=== PATIENT | female | born 1965 | race Hispanic/Latino ===

== ENCOUNTER 2018-08-07 16:03 | Inpatient (IN) | payer OTHER ==
[2018-08-07] VITALS (7 sets, daily range): BP systolic 109–125; BP diastolic 52–60
[~2018-08-07] VITALS: Ht 157.5 cm; Wt 90.0 kg
[2018-08-07] MEDS ORDERED: TRAZODONE HCL100 MG PO (17:39)
[2018-08-07] MEDS ORDERED: LACTULOSE20 GM/30 M PO (17:39)
[2018-08-07] MEDS ORDERED: FUROSEMIDE40 MG PO (17:39)
[2018-08-07] MEDS ORDERED: PROPRANOLOL HCL10 MG PO (17:39)
[2018-08-07] MEDS ORDERED: SPIRONOLACTONE25 MG PO (17:39)
[2018-08-07] MEDS ORDERED: XIFAXAN550 MG PO (17:39)
[2018-08-07 20:23] LABS: BASOPHILS % 0.3 % (0.0-1.0); EOSINOPHILS # (AUTO) 0.1 (0.0-0.4); EOSINOPHILS % 1.9 % (0.0-6.0); HEMATOCRIT 28.6 % (34.2-44.1); HEMOGLOBIN 9.4 g/dL (12.0-16.0); LYMPHOCYTES # (AUTO) 0.6 (1.0-3.2); LYMPHOCYTES % 17.1 % (18.0-39.1); MEAN CORPUSCULAR HGB CONC 32.9 g/dL (31-35); MEAN CORPUSCULAR VOLUME 109.6 fL (81-99); MONOCYTES # (AUTO) 0.4 (0.2-0.8); NEUTROPHILS # (AUTO) 2.6 (2.1-6.9); NEUTROPHILS % 70.2 % (38.7-80.0); RED BLOOD COUNT 2.61 x10e6/uL (3.6-5.1); RED CELL DISTRIBUTION WIDTH 17.2 % (11.7-14.4)
[2018-08-07 20:33] LABS: INR 1.73; PROTHROMBIN TIME 20.9 seconds (11.9-14.5)
[2018-08-07 20:42] LABS: ALANINE AMINOTRANSFERASE 31 IU/L (0-55); ALBUMIN 2.3 g/dL (3.5-5.0); ALBUMIN/GLOBULIN RATIO 0.5 (0.8-2.0); ALKALINE PHOSPHATASE 166 IU/L (40-150); ANION GAP 9.2 mmol/L (8-16); BLOOD UREA NITROGEN 9 mg/dL (7-26); BUN/CREATININE RATIO 17 (6-25); CALCIUM 8.2 mg/dL (8.4-10.2); CARBON DIOXIDE 22 mmol/L (22-29); CHLORIDE 107 mmol/L (98-107); CREATININE, SERUM 0.52 mg/dL (0.57-1.11); EST GLOMERULAR FILTRATION RATE > 60 ML/MIN (60-); GLUCOSE 107 mg/dL (74-118); POTASSIUM 4.2 mmol/L (3.5-5.1); SODIUM 134 mmol/L (136-145)
[2018-08-07 20:44] LABS: PLATELET COUNT 8 x10e3/uL (140-360)
[2018-08-07] MEDS ORDERED: SODIUM CHLORIDE 0.9% 250ML 250 ML ONE (22:20)
--- NOTE | 2018-08-07 22:47 | NUR ---
Begin platelet transfusion @ 3368 with two RN verifying. Infusion rate stated at 100 mL/hr for first 15 minutes. Continue to monitor patient for allergic reaction.
--- NOTE | 2018-08-07 23:45 | NUR ---
Platelet tranfusion is almost completed with the start of NS. The patient stated she is feeling nausea and headache. RN called and spoke with Dr. English receiving order for Tylenol 650 mg PO and Zofran IV. Continue to monitor the patient for allergic reaction. Also received order for CBC and CMP for routine on 08/08/2018.
[2018-08-07] MEDS: ACETAMINOPHEN 325 MG TAB PO PRN (23:55)
[2018-08-07] MEDS: ONDANSETRON HCL INJ 2MG/ML 2ML 2 MG/ML VIAL IV PRN (23:55)
[2018-08-08] VITALS (9 sets, daily range): BP systolic 100–127; BP diastolic 55–60
[2018-08-08 06:42] LABS: BASOPHILS % 0.4 % (0.0-1.0); EOSINOPHILS # (AUTO) 0.1 (0.0-0.4); EOSINOPHILS % 2.4 % (0.0-6.0); HEMATOCRIT 26.3 % (34.2-44.1); HEMOGLOBIN 8.6 g/dL (12.0-16.0); LYMPHOCYTES # (AUTO) 0.6 (1.0-3.2); LYMPHOCYTES % 25.2 % (18.0-39.1); MEAN CORPUSCULAR HEMOGLOBIN 35.8 pg (28-32); MEAN CORPUSCULAR HGB CONC 32.7 g/dL (31-35); MEAN CORPUSCULAR VOLUME 109.6 fL (81-99); MONOCYTES # (AUTO) 0.3 (0.2-0.8); MONOCYTES % 11.4 % (4.4-11.3); NEUTROPHILS # (AUTO) 1.5 (2.1-6.9); NEUTROPHILS % 60.2 % (38.7-80.0); RED CELL DISTRIBUTION WIDTH 17.2 % (11.7-14.4)
[2018-08-08 06:50] LABS: PLATELET COUNT 7 x10e3/uL (140-360)
[2018-08-08 07:10] LABS: ALANINE AMINOTRANSFERASE 24 IU/L (0-55); ALBUMIN 2.2 g/dL (3.5-5.0); ALBUMIN/GLOBULIN RATIO 0.6 (0.8-2.0); ALKALINE PHOSPHATASE 138 IU/L (40-150); ANION GAP 7.8 mmol/L (8-16); BLOOD UREA NITROGEN 9 mg/dL (7-26); BUN/CREATININE RATIO 19 (6-25); CALCIUM 8.1 mg/dL (8.4-10.2); CARBON DIOXIDE 24 mmol/L (22-29); CHLORIDE 109 mmol/L (98-107); CREATININE, SERUM 0.48 mg/dL (0.57-1.11); EST GLOMERULAR FILTRATION RATE > 60 ML/MIN (60-); GLUCOSE 81 mg/dL (74-118); POTASSIUM 3.8 mmol/L (3.5-5.1); SODIUM 137 mmol/L (136-145)
[2018-08-08] MEDS ORDERED: DEXAMETHASONE 4 MG TAB PO NR (07:30)
--- NOTE | 2018-08-08 07:30 | NUR ---
Received patient awake in bed no signs of distress. Call light in reach, will continue to monitor.
--- NOTE | 2018-08-08 10:15 | NUR ---
Patient A/O X3, even respirations on RA. Bowel sounds active, skin intact, 1+ pitting edema in BLE. Patient ambulatory, voids in toilet. Right AC 18 gauge IV SL. No signs of distress or discomfort at this time. Call light in reach, will continue to monitor.
[2018-08-08] MEDS ORDERED: DEXAMETHASONE SOD PHOS 10 MG/1 ML VIAL IV NR (11:30)
[2018-08-08] MEDS: PROPRANOLOL HCL 10 MG TAB PO SCH (11:40)
[2018-08-08] MEDS: RIFAXIMIN 550 MG TABLET PO SCH ×2 (11:40→21:31)
[2018-08-08] MEDS: SPIRONOLACTONE 25 MG TAB PO SCH (11:40)
[2018-08-08] MEDS: LACTULOSE SYRUP 20 GM/30 ML UDC PO SCH ×2 (11:40→17:04)
[2018-08-08] MEDS ORDERED: SODIUM CHLORIDE 0.9% 250ML 250 ML ONE (11:55)
--- NOTE | 2018-08-08 12:16 | NUR ---
Platelet transfusion started at 1200. Patient tolerating well, vital signs stable. Call light in reach will continue to monitor.
--- NOTE | 2018-08-08 12:30 | NUR ---
Platelet transfusion complete. Vital signs stable, no transfusion reactions observed or stated by patient. Call light in reach will continue to monitor.
--- NOTE | 2018-08-08 14:30 | History and Physical ---
HISTORY OF PRESENT ILLNESS: This is a 53-year-old female patient of mine, was visiting her hemato-oncologist, Dr. English for her epistaxis and her platelet count was very low only 8000 and the patient was also having ABD pain and the patient was also complaining of pain during the swallowing. So, the patient was sent for direct admission from clinic for platelet transfusion and monitoring. The patient had received platelets last night and today, platelets have dropped to 7000. ALLERGIES: THE PATIENT IS ALLERGIC TO IODINE. PAST MEDICAL HISTORY: Advanced liver cirrhosis, severe thrombocytopenia, and hepatosplenomegaly. The patient is on a liver transplant list. SOCIAL HISTORY: Denies smoking. Denies using alcohol. FAMILY HISTORY: Hypertension and diabetes mellitus. REVIEW OF SYSTEMS: Abdominal pain, nose bleed, difficulty with swallowing, and pain on swallowing. PHYSICAL EXAMINATION: GENERAL: She is a middle-aged female patient, lying in the bed, not in any acute distress. HEENT: Marked PALLOR present. LUNGS: Bilateral equal air entry. No rales or rhonchi. HEART: S1 and S2. Regular. Systolic murmur present. ABDOMEN: Ascites present. Hepatosplenomegaly present. NEUROLOGIC: No focal neurological deficits. ADMITTING INPATIENT DIAGNOSES: Epistaxis with severe thrombocytopenia, platelets of only 8000 and anemia, hemoglobin of 8.6. High pro-time , Epistaxis with severe hepatic coagulopathy and advanced liver failure, cirrhosis of the liver. The patient has been admitted with above diagnoses. The patient received platelet transfusion . MD EDMUND Mccoy/SUE /[id number] MTDD
[2018-08-08] MEDS ORDERED: NON-FORMULARY MEDICATION (Trazodone Hcl 100 MG) PO SCH (21:00)
[2018-08-08] MEDS: TRAZODONE HCL 50 MG TAB PO SCH (21:31)
[2018-08-08] MEDS: ACETAMINOPHEN 325 MG TAB PO PRN (22:28)
[2018-08-09] VITALS (8 sets, daily range): BP systolic 106–133; BP diastolic 53–61
--- NOTE | 2018-08-09 01:18 | Consultation ---
DATE OF CONSULTATION: Gastroenterology Consultation REASON FOR CONSULTATION: Cirrhosis. HISTORY OF PRESENT ILLNESS: Ms. Guerrero is a pleasant 53-year-old woman with below history. She had a cardiac catheterization a week ago. She had a hematoma related to that. Afterwards, she noted bruising and she started developing significant nosebleed. She has abdominal pain, which is chronic. She has a history of gastroparesis and has had EGD with Botox by Dr. Lee in the past. She has hepatoma and is on the transplant list at [facility] with [facility]. PAST MEDICAL HISTORY: 1. Cirrhosis. 2. Thrombocytopenia. 3. Hepatosplenomegaly. 4. Gastroparesis. MEDICATIONS: Reviewed. Please see MAR medication reconciliation form. ALLERGIES: REVIEWED. SOCIAL HISTORY: No alcohol, tobacco, or illicit substances. FAMILY HISTORY: Hypertension, diabetes. REVIEW OF SYSTEMS: A 12-system review is positive for that mentioned in HPI, otherwise positive for some exacerbation of her encephalopathy. PHYSICAL EXAMINATION: GENERAL: Pleasant, alert and oriented, in no acute distress. HEENT: Pupils are equal, round, and reactive to light. NECK: Supple. LUNGS: Clear. CARDIOVASCULAR: S1 and S2. ABDOMEN: Soft. Tender upper abdomen. No rebound, guarding, or mass. EXTREMITIES: No clubbing, cyanosis. PSYCHIATRIC: Calm, cooperative. NEUROLOGIC: Nonfocal. HEM/ONC: Some bruising. Electronic health records were reviewed for laboratory and radiologic studies as well as history. ASSESSMENT: 1. Cirrhosis. 2. Hepatoma. 3. Thrombocytopenia, severe. 4. Epistaxis. 5. Easy bleeding, bruising. 6. Recent cardiac catheterization. Complaining of hematoma with that. 7. Swallow discomfort, dysphagia. PLAN: At the current time, defer to Dr. English her hematologic issues. We will continue to her on lactulose and Xifaxan. The patient is having some discomfort on swallowing and feels like she gets phlegm and coughing when she eats. We will see how she does over the weekend. We can consider an upper endoscopy if she is not improved pending platelet count that is acceptable before performing another endoscopy. Thank you very much for asking me to see Ms. Guerrero. If any questions or concerns, please do not hesitate to contact me. Patricia Mcneal MD RLS/SUE /[id number] MTDJennifer
[2018-08-09] MEDS: HYDROCODONE/APAP 5MG-325MG TAB PO PRN ×2 (06:05→17:34)
[2018-08-09] MEDS: LACTULOSE SYRUP 20 GM/30 ML UDC PO SCH ×3 (06:05→17:27)
[2018-08-09 07:08] LABS: HEMATOCRIT 28.6 % (34.2-44.1); HEMOGLOBIN 9.3 g/dL (12.0-16.0); LYMPHOCYTES # (AUTO) 0.3 (1.0-3.2); LYMPHOCYTES % 5.6 % (18.0-39.1); MEAN CORPUSCULAR HEMOGLOBIN 35.9 pg (28-32); MEAN CORPUSCULAR HGB CONC 32.5 g/dL (31-35); MEAN CORPUSCULAR VOLUME 110.4 fL (81-99); MONOCYTES # (AUTO) 0.2 (0.2-0.8); MONOCYTES % 3.9 % (4.4-11.3); NEUTROPHILS # (AUTO) 4.8 (2.1-6.9); NEUTROPHILS % 90.1 % (38.7-80.0); RED BLOOD COUNT 2.59 x10e6/uL (3.6-5.1); RED CELL DISTRIBUTION WIDTH 16.8 % (11.7-14.4)
[2018-08-09 07:10] LABS: PLATELET COUNT 5 x10e3/uL (140-360)
[2018-08-09 07:11] LABS: ALANINE AMINOTRANSFERASE 31 IU/L (0-55); ALBUMIN 2.4 g/dL (3.5-5.0); ALBUMIN/GLOBULIN RATIO 0.5 (0.8-2.0); ALKALINE PHOSPHATASE 167 IU/L (40-150); ANION GAP 9.1 mmol/L (8-16); BLOOD UREA NITROGEN 9 mg/dL (7-26); BUN/CREATININE RATIO 16 (6-25); CALCIUM 8.5 mg/dL (8.4-10.2); CARBON DIOXIDE 22 mmol/L (22-29); CHLORIDE 109 mmol/L (98-107); CREATININE, SERUM 0.56 mg/dL (0.57-1.11); EST GLOMERULAR FILTRATION RATE > 60 ML/MIN (60-); GLUCOSE 147 mg/dL (74-118); POTASSIUM 4.1 mmol/L (3.5-5.1); SODIUM 136 mmol/L (136-145)
--- NOTE | 2018-08-09 07:30 | NUR ---
RECEIVED PATIENT ASLEEP IN BED, NO SIGNS OF DISTRESS. CALL LIGHT IN REACH WILL CONTINUE TO MONITOR.
[2018-08-09 07:44] LABS: ANISOCYTOSIS S; BAND NEUTROPHILS % (MANUAL) 5 %; LYMPHOCYTES % (MANUAL) 4 % (19-48); MONOCYTES % (MANUAL) 2 % (3.4-9.0); NEUTROPHILS % (MANUAL) 89 % (40-74); PLATELET ESTIMATE MARKEDLY DECREASED; PLATELET MORPHOLOGY COMMENT NORMAL; POIKILOCYTOSIS S; RBC MORPHOLOGY COMMENT NORMAL
--- NOTE | 2018-08-09 07:55 | NUR ---
NOTIFIED DR. RODRIGUEZ OF PLT COUNT 5. ORDER FOR 1 TRANSFUSION PLATELET PHERESIS.
[2018-08-09] MEDS: PROPRANOLOL HCL 10 MG TAB PO SCH (08:05)
[2018-08-09] MEDS: SPIRONOLACTONE 25 MG TAB PO SCH (09:19)
[2018-08-09] MEDS: PANTOPRAZOLE SOD 40 MG TABEC PO SCH (09:19)
[2018-08-09] MEDS: RIFAXIMIN 550 MG TABLET PO SCH ×2 (09:19→20:00)
[2018-08-09] MEDS: FUROSEMIDE 40 MG TAB PO SCH (09:19)
[2018-08-09] MEDS: METHYLPREDNISOLONE SOD SUCC 40 MG/ML VIAL 1ML IV SCH ×2 (10:34→20:00)
[2018-08-09] MEDS ORDERED: SODIUM CHLORIDE 0.9% 250ML 250 ML ONE ×2 (10:49→20:17)
--- NOTE | 2018-08-09 11:15 | NUR ---
PATIENT RECEIVING PLATELET TRANSFUSION AT THIS TIME. VITAL SIGNS STABLE, TOLERATING WELL. CALL LIGHT IN REACH WILL CONTINUE TO MONITOR.
--- NOTE | 2018-08-09 11:25 | NUR ---
PLATELET TRANSFUSION COMPLETE. VITAL SIGNS STABLE, NO SIGNS OF DISTRESS AT THIS TIME. WELL TOLERATED. CALL LIGHT IN REACH, WILL CONTINUE TO MONITOR.
--- NOTE | 2018-08-09 13:23 | Diagnostic Imaging Report ---
EXAMINATION: CHEST SINGLE (PORTABLE) INDICATION: Cough. COMPARISON: None FINDINGS: TUBES and LINES: None. LUNGS: Mild bilateral pulmonary venous congestion. There is no evidence of pneumonia or pulmonary edema. PLEURA: No pleural effusion or pneumothorax. HEART AND MEDIASTINUM: The cardiac silhouette is mildly to moderately enlarged. BONES AND SOFT TISSUES: No acute osseous lesion. Soft tissues are unremarkable. UPPER ABDOMEN: No free air under the diaphragm. IMPRESSION: Mild pulmonary venous congestion. Signed by: Dr. Sara Wheeler M.D. on 08/09/2018 1:20 PM
[2018-08-09] MEDS: TRAZODONE HCL 50 MG TAB PO SCH (20:00)
[2018-08-09] MEDS: CEFTRIAXONE SOD 1 GM/NS 50 ML 50 ML IV SCH (20:00)
--- NOTE | 2018-08-09 22:26 | NUR ---
called placed to Dr. English answering service regarding critical lab result. awaiting call back.
--- NOTE | 2018-08-09 22:41 | Diagnostic Imaging Report ---
EXAMINATION: CT of the abdomen and pelvis without contrast. TECHNIQUE: Helical CT images of the abdomen and pelvis were performed from the lung bases to the lesser trochanters. No intravenous contrast was given per protocol. Coronal and sagittal reformatted images were obtained.Dose modulation, iterative reconstruction, and/or weight based adjustment of the mA/kV was utilized to reduce the radiation dose to as low as reasonably achievable. COMPARISON: None. CLINICAL HISTORY:Abdominal pain DISCUSSION: ABSENCE OF INTRAVENOUS CONTRAST DECREASES SENSITIVITY FOR DETECTION OF FOCAL LESIONS AND VASCULAR PATHOLOGY. ABDOMEN/PELVIS: LOWER THORAX: Right pleural effusion. HEPATOBILIARY:Hepatic cirrhosis. Cholecystectomy. SPLEEN: Spleen enlarged PANCREAS: No focal masses or ductal dilatation. ADRENALS: No adrenal nodules. KIDNEYS/URETERS: Punctate left renal calculi. PELVIC ORGANS/BLADDER: The bladder is normal. PERITONEUM/RETROPERITONEUM: Pelvic ascites. LYMPH NODES: No intra-abdominal,retroperitoneal, pelvic or inguinal lymphadenopathy. VESSELS: Limited evaluation GI TRACT: No distention or wall thickening. BONES AND SOFT TISSUES: No bony destructive lesions. No soft tissue abnormalities. IMPRESSION: Cirrhotic liver with splenomegaly and ascites. No acute CT finding. Signed by: Dr. Luis Ramirez M.D. on 08/09/2018 10:38 PM
[2018-08-10] VITALS (8 sets, daily range): BP systolic 99–122; BP diastolic 51–61
[2018-08-10] MEDS ORDERED: DEXAMETHASONE SOD PHOS 10 MG/1 ML VIAL IV ONE
--- NOTE | 2018-08-10 04:48 | Consultation ---
DATE OF CONSULTATION: 08/08/2018 CONSULTING PHYSICIAN: Ron English MD, Hematology/Oncology Service. REASON FOR CONSULTATION: Evaluation and management of the patient with severe thrombocytopenia. HISTORY OF PRESENTING ILLNESS: Ms. Guerrero is a very pleasant 53-year-old female, who is my clinic patient and has complicated past medical history including known history of liver cirrhosis, severe thrombocytopenia with baseline count around 20,000, hepatosplenomegaly, and gastroparesis, who has been in consideration for liver transplantation. She was seen and evaluated at [facility] and presently in the waiting list. She has been having intermittent thrombocytopenia, requiring preprocedural transfusion. More recently, she had been started on Promacta with some response. Yesterday, she was presented to the clinic with complaining of epistaxis and bruises, suspected of severe thrombocytopenia and coagulopathy, subsequently sent to the hospital for admission for platelet transfusion. Her initial laboratory workup revealed severe thrombocytopenia with platelet count of 8000. Subsequently, she was given 1 jumbo platelets. Hematology/Oncology has been consulted to assist with management. PAST MEDICAL HISTORY: 1. Liver cirrhosis, on liver transplant list. 2. Thrombocytopenia. 3. Recurrent ascites requiring paracentesis. 4. Gastroparesis. 5. Hepatosplenomegaly. PAST SURGICAL HISTORY: 1. Recent cardiac catheterization. 2. Multiple paracentesis. 3. Multiple EGD and colonoscopy. FAMILY HISTORY: Positive for diabetes and hypertension. SOCIAL HISTORY: Denies history of alcohol use, illicit drug use, or history of smoking. ALLERGIES: IODINE. CURRENT MEDICATIONS: Reviewed and as per electronic medical record. REVIEW OF SYSTEMS: A 14-point review of systems is negative, except as mentioned in the history of present illness. PHYSICAL EXAMINATION: VITAL SIGNS: Reviewed and as per electronic medical record. HEENT: PERRLA. Extraocular movements intact. Head is atraumatic and normocephalic. NECK: Supple. CVS: S1, S2 audible. RESPIRATORY: Decreased bilateral air entry. ABDOMEN: Distended. Positive bowel sounds. EXTREMITIES: Negative edema. NEUROLOGIC: The patient is alert and awake. LABORATORY DATA: White blood cell count of 2.4, hemoglobin 8.6, hematocrit 26.3, platelet count 7000. BUN 9, creatinine 0.4, bilirubin 7.7, albumin 2.2. ASSESSMENT AND PLAN: Ms. Guerrero is a very pleasant 53-year-old female, who is very well known to me as she is my clinic patient and has a history of advanced liver cirrhosis causing hepatosplenomegaly and severe thrombocytopenia. She also has been having recurrent ascites. Yesterday, she was presented to the clinic with complaining of epistaxis, subsequently sent to the hospital for admission of platelet transfusion. Apparently, initial workup revealed platelet count of 8000. She was given 1 jumbo platelet, however, did not have much response and platelet counts still at low range at 7000. I have reviewed the record and discussed at length with the patient about her condition and the problems of further workup. 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 At this point, recommendation would be to proceed forward with 1 more unit of platelets along with dexamethasone IV as a premedication depending on the resolvable void for the recommendation. The patient also has anemia, which I will closely monitor. The patient has ascites and abdominal distention. I will get imaging of the abdomen. Thank you for the consult. I will continue to be available. Please call me with questions. MD FELY Paez/SUE /[id number]
[2018-08-10] MEDS: LACTULOSE SYRUP 20 GM/30 ML UDC PO SCH ×3 (06:17→17:15)
[2018-08-10] MEDS: HYDROCODONE/APAP 5MG-325MG TAB PO PRN ×2 (06:27→18:15)
[2018-08-10 07:05] LABS: HEMATOCRIT 27.7 % (34.2-44.1); HEMOGLOBIN 8.9 g/dL (12.0-16.0); LYMPHOCYTES # (AUTO) 0.3 (1.0-3.2); LYMPHOCYTES % 5.9 % (18.0-39.1); MEAN CORPUSCULAR HGB CONC 32.1 g/dL (31-35); MEAN CORPUSCULAR VOLUME 112.1 fL (81-99); MONOCYTES # (AUTO) 0.1 (0.2-0.8); MONOCYTES % 2.5 % (4.4-11.3); NEUTROPHILS # (AUTO) 4.3 (2.1-6.9); NEUTROPHILS % 90.8 % (38.7-80.0); RED BLOOD COUNT 2.47 x10e6/uL (3.6-5.1); RED CELL DISTRIBUTION WIDTH 16.8 % (11.7-14.4)
--- NOTE | 2018-08-10 07:27 | NUR ---
RECEIVED PATIENT ASLEEP IN BED NO SIGNS OF DISTRESS. CALL LIGHT IN REACH, WILL CONTINUE TO MONITOR.
[2018-08-10 07:59] LABS: PLATELET COUNT 6 x10e3/uL (140-360)
--- NOTE | 2018-08-10 08:26 | NUR ---
SPOKE TO DR. RODRIGUEZ REGARDING PLT COUNT OF 6. ORDER FOR IVIG 0.5G/KG IV DAILY FOR 3 DAYS.
[2018-08-10 08:30] LABS: ALANINE AMINOTRANSFERASE 32 IU/L (0-55); ALBUMIN 2.5 g/dL (3.5-5.0); ALBUMIN/GLOBULIN RATIO 0.6 (0.8-2.0); ALKALINE PHOSPHATASE 125 IU/L (40-150); ANION GAP 8.8 mmol/L (8-16); BLOOD UREA NITROGEN 12 mg/dL (7-26); BUN/CREATININE RATIO 19 (6-25); CALCIUM 8.4 mg/dL (8.4-10.2); CARBON DIOXIDE 22 mmol/L (22-29); CHLORIDE 109 mmol/L (98-107); CREATININE, SERUM 0.63 mg/dL (0.57-1.11); EST GLOMERULAR FILTRATION RATE > 60 ML/MIN (60-); GLUCOSE 128 mg/dL (74-118); POTASSIUM 4.8 mmol/L (3.5-5.1); SODIUM 135 mmol/L (136-145)
[2018-08-10] MEDS ORDERED: IMMU GLOBULIN,GAMMA (IGG) 200 ML IV SCH (09:00)
[2018-08-10] MEDS: PROPRANOLOL HCL 10 MG TAB PO SCH (09:21)
[2018-08-10] MEDS: FUROSEMIDE 40 MG TAB PO SCH (09:21)
[2018-08-10] MEDS: CEFTRIAXONE SOD 1 GM/NS 50 ML 50 ML IV SCH (09:21)
[2018-08-10] MEDS: RIFAXIMIN 550 MG TABLET PO SCH ×2 (09:21→20:14)
[2018-08-10] MEDS: SPIRONOLACTONE 25 MG TAB PO SCH (09:21)
[2018-08-10] MEDS: METHYLPREDNISOLONE SOD SUCC 40 MG/ML VIAL 1ML IV SCH ×2 (09:21→20:14)
[2018-08-10] MEDS: PANTOPRAZOLE SOD 40 MG TABEC PO SCH (09:21)
--- NOTE | 2018-08-10 09:45 | NUR ---
PATIENT A/O X3 EVEN RESPIRATIONS ON RA. BOWEL SOUNDS ACTIVE, SKIN INTACT, NO EDEMA. RIGHT AC 18 GAUGE SL. PATIENT AMBULATORY. CALL LIGHT IN REACH WILL CONTINUE TO MONITOR.
[2018-08-10] MEDS: IMMU GLOBULIN,GAMMA (IGG) 400 ML IV SCH (11:34)
--- NOTE | 2018-08-10 12:00 | NUR ---
PATIENT RECEIVING IGG TOLERATING WELL. CALL LIGHT IN REACH, WILL CONTINUE TO MONITOR.
[2018-08-10 13:20] LABS: BAND NEUTROPHILS % (MANUAL) 2 %; LYMPHOCYTES % (MANUAL) 5 % (19-48); MONOCYTES % (MANUAL) 2 % (3.4-9.0); NEUTROPHILS % (MANUAL) 91 % (40-74)
[2018-08-10 13:21] LABS: PLATELET ESTIMATE MARKEDLY DECREASED; PLATELET MORPHOLOGY COMMENT NORMAL; RBC MORPHOLOGY COMMENT ABNORMAL
[2018-08-10] MEDS ORDERED: CEFTRIAXONE SOD 1 GM/NS 50 ML 50 ML IV SCH (18:00)
[2018-08-10] MEDS: TRAZODONE HCL 50 MG TAB PO SCH (20:14)
--- NOTE | 2018-08-10 21:10 | Consultation ---
DATE OF CONSULTATION: CONSULTATION REPORT REASON FOR CONSULTATION: The patient is concerned about peritonitis. Thank you so much for letting us see this patient. HISTORY OF PRESENT ILLNESS: This patient is a 53-year-old who was admitted on August 08, 2018, to [facility]. I was asked to see her and I did see her on August 09, 2018, and this was dictated later. This patient who is a 53-year-old female, who has history of liver cirrhosis, severe thrombocytopenia, and she is on liver transplant list. She visited her oncologist, Dr. English for epistaxis. It was noted that her platelets were about 8000, so she was sent to emergency room. It was also noted that she had increase in abdominal girth. The patient is currently lying in bed. Her daughter is at the bedside. She denies any fever, chills, nausea, vomiting, diarrhea, urgency, frequency, but she says abdominal girth has increased. The patient had cardiac cath done about a week ago. She did have hematoma afterwards. She had bruising and developed significant nosebleed. She went to see Dr. English. She also saw Dr. Lee for EGD and Botox injection. She does have history of hepatoma. She is on transplant list for [facility] and the patient was in the emergency room where she was evaluated and admitted. When I saw the patient, she looked comfortable, but she is complaining of abdominal girth. No fever. No chills. PAST MEDICAL HISTORY: 1. Liver cirrhosis on liver transplant. 2. Thrombocytopenia. 3. Recurrent ascites with recurrent paracentesis. 4. Gastroparesis. 5. Hepatosplenomegaly. PAST SURGICAL HISTORY: 1. Recent cardiac catheterization. 2. Multiple paracentesis. 3. Multiple EGD. 4. Colonoscopy. ALLERGIES: NKA. SOCIAL HISTORY: There is no smoking, drug abuse, or alcohol abuse. FAMILY HISTORY: Hypertension and diabetes. REVIEW OF SYSTEMS: HEENT: There is no headache, visual changes, or hearing changes. GASTROINTESTINAL: There is no nausea, no vomiting, no diarrhea, but there are dark stools. She has some bloating. GENITOURINARY: There is no urgency, no frequency. SKIN: There is no rash. JOINT: There is no erythema or edema. PULMONARY: There is no shortness of breath or cough. CARDIAC: There is no chest pain or arrhythmia. NEUROLOGIC: There is no local seizure or focal weakness. All symptoms are reviewed. 14-point within normal limit. LABORATORY DATA: Reviewed. Her white count is 3.69, hemoglobin 9.4, her platelets are 8000. Her sodium 134, potassium 4.2, and creatinine of 0.52. PHYSICAL EXAMINATION: GENERAL: She is currently alert, oriented, does not seem to be in acute distress. VITAL SIGNS: Stable. Afebrile. HEENT: She is not icteric. Normocephalic. NECK: Supple. No JVD. No lymphadenopathy. No thyromegaly. ABDOMEN: Distended. EXTREMITIES: No edema. SKIN: No rash. IMPRESSION: 1. Thrombocytopenia. 2. Liver cirrhosis. 3. Ascites. PLAN: I am concerned about infection, probably deterioration of her condition. We will put her on Rocephin 1 g q.24 hours. Obtain blood cultures. Recheck CBC. Recheck Chem panel. Discussed with the patient. Discussed with the family. Further recommendations to follow. MD YAEL Maldonado/SUE /[id number]
[2018-08-11] VITALS (7 sets, daily range): BP systolic 98–122; BP diastolic 54–59
[2018-08-11] MEDS: LACTULOSE SYRUP 20 GM/30 ML UDC PO SCH ×4 (06:32→21:49)
[2018-08-11 07:41] LABS: HEMOGLOBIN 9.5 g/dL (12.0-16.0); LYMPHOCYTES # (AUTO) 0.3 (1.0-3.2); LYMPHOCYTES % 6.7 % (18.0-39.1); MEAN CORPUSCULAR HGB CONC 30.6 g/dL (31-35); MEAN CORPUSCULAR VOLUME 117.4 fL (81-99); MONOCYTES # (AUTO) 0.2 (0.2-0.8); MONOCYTES % 4.1 % (4.4-11.3); NEUTROPHILS # (AUTO) 3.7 (2.1-6.9); NEUTROPHILS % 88.7 % (38.7-80.0); RED BLOOD COUNT 2.64 x10e6/uL (3.6-5.1)
[2018-08-11 07:48] LABS: PLATELET COUNT 6 x10e3/uL (140-360)
[2018-08-11 08:00] LABS: ANION GAP 7.8 mmol/L (8-16); BLOOD UREA NITROGEN 15 mg/dL (7-26); BUN/CREATININE RATIO 23 (6-25); CALCIUM 8.4 mg/dL (8.4-10.2); CARBON DIOXIDE 23 mmol/L (22-29); CHLORIDE 111 mmol/L (98-107); CREATININE, SERUM 0.66 mg/dL (0.57-1.11); EST GLOMERULAR FILTRATION RATE > 60 ML/MIN (60-); GLUCOSE 121 mg/dL (74-118); POTASSIUM 4.8 mmol/L (3.5-5.1); SODIUM 137 mmol/L (136-145)
--- NOTE | 2018-08-11 08:10 | NUR ---
PAGED DR. RODRIGUEZ REGARDING RECENT LAB WORK FOR THE PATIENT
[2018-08-11] MEDS: PANTOPRAZOLE SOD 40 MG TABEC PO SCH (09:00)
[2018-08-11] MEDS: CEFTRIAXONE SOD 1 GM/NS 50 ML 50 ML IV SCH (09:00)
[2018-08-11] MEDS: METHYLPREDNISOLONE SOD SUCC 40 MG/ML VIAL 1ML IV SCH ×2 (09:01→21:02)
[2018-08-11] MEDS: FUROSEMIDE 40 MG TAB PO SCH (09:02)
[2018-08-11] MEDS: SPIRONOLACTONE 25 MG TAB PO SCH (09:02)
[2018-08-11] MEDS: PROPRANOLOL HCL 10 MG TAB PO SCH (09:02)
[2018-08-11] MEDS: RIFAXIMIN 550 MG TABLET PO SCH ×2 (09:03→21:02)
[2018-08-11] MEDS ORDERED: SODIUM CHLORIDE 0.9% 250ML 250 ML ONE (09:39)
[2018-08-11] MEDS: IMMU GLOBULIN,GAMMA (IGG) 400 ML IV SCH (09:45)
[2018-08-11 11:16] LABS: ALANINE AMINOTRANSFERASE 52 IU/L (0-55); ALBUMIN 2.4 g/dL (3.5-5.0); ALBUMIN/GLOBULIN RATIO 0.5 (0.8-2.0); ALKALINE PHOSPHATASE 128 IU/L (40-150); ANION GAP 10.8 mmol/L (8-16); BUN/CREATININE RATIO 24 (6-25); CALCIUM 8.5 mg/dL (8.4-10.2); CARBON DIOXIDE 20 mmol/L (22-29); CHLORIDE 111 mmol/L (98-107); CREATININE, SERUM 0.66 mg/dL (0.57-1.11); EST GLOMERULAR FILTRATION RATE > 60 ML/MIN (60-); GLUCOSE 121 mg/dL (74-118); POTASSIUM 4.8 mmol/L (3.5-5.1); SODIUM 137 mmol/L (136-145)
[2018-08-11 11:28] LABS: BLOOD UREA NITROGEN 16 mg/dL (7-26)
--- NOTE | 2018-08-11 15:04 | NUR ---
LEFT A VOICE MESSAGE WITH DR. RODRIGUEZ REGARDING THE PATIENTS LAB WORK, WILL CONTINUE TO FOLLOW UP.
--- NOTE | 2018-08-11 16:22 | NUR ---
SPOKE WITH DR. RODRIGUEZ REGARDING THE PATIENT'S LABS, WILL CONTINUE PATIENT ON IGG DAILY FOR 3 DAYS, WILL CONTINUE TO MONITOR.
--- NOTE | 2018-08-11 20:00 | NUR ---
DR. PITTS AT BEDSIDE WITH PATIENT. PER MD ORDER, INSTRUCTED THE DAUGHTER OF THE PATIENT TO CALL [facility] TO FIND THE PHYSICIAN WHO WILL TAKE OVER PHYSICIAN WHEN PATIENT IS TRANSFERRED FOR HIGHER LEVEL OF CARE FOR POSSIBLE SPLENECTOMY. THE DAUGHTER IS TO PROVIDE THE MD'S NAME TO PASS OFF TO DR. PITTS TO CONTACT WITH TO PROVIDE INFORMATION. RN AWAITING FROM DAUGHTER WITH THE INFORMATION TO INITIATE COMMUNICATION AND TRANSFER.
[2018-08-11] MEDS: TRAZODONE HCL 50 MG TAB PO SCH (21:02)
[2018-08-11] MEDS: ONDANSETRON HCL INJ 2MG/ML 2ML 2 MG/ML VIAL IV PRN (21:48)
[2018-08-11] MEDS: ACETAMINOPHEN 325 MG TAB PO PRN (21:48)
[2018-08-11] MEDS: HYDROCODONE/APAP 5MG-325MG TAB PO PRN (22:21)
[2018-08-12] VITALS (8 sets, daily range): BP systolic 98–112; BP diastolic 51–56
[2018-08-12] MEDS ORDERED: ONDANSETRON HCL 4 MG ORAL DISINTEGRATING TAB PO PRN (07:00)
[2018-08-12 07:13] LABS: ALANINE AMINOTRANSFERASE 54 IU/L (0-55); ALBUMIN 2.2 g/dL (3.5-5.0); ALBUMIN/GLOBULIN RATIO 0.4 (0.8-2.0); ALKALINE PHOSPHATASE 148 IU/L (40-150); BLOOD UREA NITROGEN 19 mg/dL (7-26); BUN/CREATININE RATIO 26 (6-25); CARBON DIOXIDE 25 mmol/L (22-29); CHLORIDE 107 mmol/L (98-107); CREATININE, SERUM 0.73 mg/dL (0.57-1.11); EST GLOMERULAR FILTRATION RATE > 60 ML/MIN (60-); GLUCOSE 153 mg/dL (74-118); POTASSIUM 4.5 mmol/L (3.5-5.1); SODIUM 133 mmol/L (136-145)
[2018-08-12 07:24] LABS: ANION GAP 5.5 mmol/L (8-16)
[2018-08-12] MEDS: PROPRANOLOL HCL 10 MG TAB PO SCH (09:00)
[2018-08-12] MEDS: IMMU GLOBULIN,GAMMA (IGG) 400 ML IV SCH (09:40)
[2018-08-12] MEDS: PANTOPRAZOLE SOD 40 MG TABEC PO SCH (09:40)
[2018-08-12] MEDS: METHYLPREDNISOLONE SOD SUCC 40 MG/ML VIAL 1ML IV SCH ×2 (09:40→20:39)
[2018-08-12] MEDS: SPIRONOLACTONE 25 MG TAB PO SCH (09:41)
[2018-08-12] MEDS: FUROSEMIDE 40 MG TAB PO SCH (09:42)
[2018-08-12] MEDS: RIFAXIMIN 550 MG TABLET PO SCH ×2 (09:42→20:39)
[2018-08-12] MEDS ORDERED: LEVOFLOXACIN 750MG/D5W 150ML 150 ML IV SCH (11:45)
--- NOTE | 2018-08-12 12:25 | NUR ---
CALLED ATTENDING, DR. PARIS JOHN'S OFFICE, LEFT MESSAGE WITH "MERON" TO REQUEST AN ORDER TO TRANSFER PATIENT TO [facility] FOR SPLENECTOMY. PATIENT PROVIDED INFORMATION FOR RECEIVING PHYSICIAN: DR NORWOOD (PERFORMANCE [employer]OVEMENT CONSULTANT) [phone] AND PACKER DENTURE- LATOSHA
[2018-08-12] MEDS: LACTULOSE SYRUP 20 GM/30 ML UDC PO SCH ×2 (13:33→17:50)
[2018-08-12] MEDS: CEFTRIAXONE SOD 1 GM/NS 50 ML 50 ML IV SCH (17:43)
[2018-08-12] MEDS: TRAZODONE HCL 50 MG TAB PO SCH (20:39)
[2018-08-12] MEDS: HYDROCODONE/APAP 5MG-325MG TAB PO PRN (20:39)
[2018-08-12 21:03] LABS: HEMATOCRIT 36.1 % (34.2-44.1); HEMOGLOBIN 11.3 g/dL (12.0-16.0); LYMPHOCYTES # (AUTO) 0.2 (1.0-3.2); LYMPHOCYTES % 6.4 % (18.0-39.1); MEAN CORPUSCULAR HEMOGLOBIN 36.2 pg (28-32); MEAN CORPUSCULAR HGB CONC 31.3 g/dL (31-35); MEAN CORPUSCULAR VOLUME 115.7 fL (81-99); MONOCYTES # (AUTO) 0.4 (0.2-0.8); MONOCYTES % 9.9 % (4.4-11.3); NEUTROPHILS # (AUTO) 3.1 (2.1-6.9); NEUTROPHILS % 82.9 % (38.7-80.0); RED BLOOD COUNT 3.12 x10e6/uL (3.6-5.1); RED CELL DISTRIBUTION WIDTH 16.3 % (11.7-14.4)
[2018-08-12 21:22] LABS: PLATELET COUNT 17 x10e3/uL (140-360)
--- NOTE | 2018-08-12 21:32 | NUR ---
LAB CALLED REPORTED CBC STAT FOR PLATELET AT 17,000 WHICH INCREASED FROM 6. RN SPOKE WITH DR. RODRIGUEZ WITH NEW FINDING AND STATED TO HOLD THE TRANSFER TO [facility] FOR THE NEXT CBC ROUTINE. SPOKE WITH UNIT RN TO PUT HOLD ON TRANSFER. RN SPOKE WITH PATIENT AND DAUGHTER WITH NEW FINDING AND ARE HAPPY WITH THE RESULT.
--- NOTE | 2018-08-12 21:49 | NUR ---
SPOKE TO GABO WITH THE TRANSFER CENTER [facility]. TRANSFER PLACED ON HOLD AT THIS TIME PENDING 5AM LAB RESULT.
--- NOTE | 2018-08-12 21:51 | NUR ---
SPOKE TO PM NURSE WHO NOW STATES THAT MD RODRIGUEZ WANTS TO STILL INITIATE TRANSFER AT THIS TIME. RECALLED GABO WITH THE TRANSFER CENTER DOWNTOWN TO SAY WE WILL TRANSFER PENDING APPROVAL. PM NURSE MADE AWARE TO CONTACT DR Preston JOHN THE ATTENDING AT [facility] TO LET HIM KNOW DR RODRIGUEZ'S WISHES ARE TO TRANSFER PATIENT DOWNTOWN TO THE MEDICAL CENTER.
--- NOTE | 2018-08-12 23:00 | NUR ---
TRANSFER REPORT GIVEN TO BRET BAÑUELOS AT [facility]. PATIENT WILL BE TAKEN TO HOSPITAL VIA EMS. PATIENT VERBALIZED UNDERSTANDING TO BE TRANSFER TO [facility] FOR HIGHER LEVEL OF CARE FOR POSSIBLE REMOVAL OF SPLEEN.
[2018-08-13] MEDS ORDERED: LEVOFLOXACIN 750MG/D5W 150ML 150 ML IV SCH (12:07)
== END 2018-08-13 00:30 | disposition other institution (70) | DRG 813 ==
LOC: MED/SURG 16:03 → OBSVTOIN 08-08 10:18
PROVIDERS: ADMIT Internal Medicine; ATTEND Internal Medicine
PROC: 30233R1 Transfusion of Nonautologous Platelets into Peripheral Vein, Percutaneous Approach (ICD-10-PCS; principal; 2018-08-07)
DX: D69.59 Other secondary thrombocytopenia (principal); R18.8 Other ascites; I97.630 Postprocedural hematoma of a circulatory system organ or structure following a cardiac catheterization; R04.0 Epistaxis; K74.60 Unspecified cirrhosis of liver; Z91.041 Radiographic dye allergy status; R16.2 Hepatomegaly with splenomegaly, not elsewhere classified; Z82.49 Family history of ischemic heart disease and other diseases of the circulatory system; Z83.3 Family history of diabetes mellitus; D64.9 Anemia, unspecified; R13.10 Dysphagia, unspecified; K31.84 Gastroparesis; R19.7 Diarrhea, unspecified
CPT/HCPCS: 36415; 71045; 74176; 80048; 80053; 85025; 85610; 86850; 86900; 87040; 87086; G0378; J0696; J1100; J1561; J2405; J2920; J7050; P9031; P9034